=== PATIENT | female | born 1955 | race Caucasian/White ===

== ENCOUNTER → 2016-10-06 | Outpatient (CLI) | payer BC ==
[~2016-10-06] MED LIST: ASTAXANTHIN; ENOX40IN SQ; LUTEIN; MELO15TA3 PO; MULT-506 PO; NXM/40 PO; OMEG10007 PO; TRAM-10 PO; [UNRECOGNIZED DRUG - OTHER]
--- NOTE | 2016-10-06 12:28 | DIAGNOSTIC IMAGING REPORT ---
RIGHT ANKLE MIN 3 VIEWS ROUTINE CLINICAL HISTORY: PAIN Right pain COMPARISON: None. DISCUSSION: The bones and joint spaces appear intact. There is no evidence of fracture, dislocation or bony disease. There is no evidence for soft tissue swelling. IMPRESSION: Negative study. Electronically signed by: Neo Duff M.D. 10/06/2016 12:27 PM Dictated Date/Time: 10/06/2016 12:26 PM
--- NOTE | 2016-10-06 12:29 | DIAGNOSTIC IMAGING REPORT ---
LEFT ANKLE MIN 3 VIEWS ROUTINE CLINICAL HISTORY: PAIN trauma COMPARISON: None. DISCUSSION: The bones and joint spaces appear intact. There is no evidence of fracture, dislocation or bony disease. Small old avulsion tip distal fibula. Margins are well corticated. Ankle mortise is aligned anatomically. IMPRESSION: No acute abnormality Electronically signed by: Neo Duff M.D. 10/06/2016 12:27 PM Dictated Date/Time: 10/06/2016 12:27 PM
--- NOTE | 2016-10-06 12:35 | DIAGNOSTIC IMAGING REPORT ---
L-SPINE MIN 4 VIEWS ROUTINE CLINICAL HISTORY: Pain. COMPARISON: None FINDINGS: A left hip arthroplasty is partially imaged. There is marked multilevel disc space narrowing with osteophytosis and vacuum disc phenomenon at multiple levels. There is moderate to severe facet arthrosis. There is slight retrolisthesis of L4 and L5. Vertebral body heights are maintained. IMPRESSION: 1. No acute lumbar spine fracture or subluxation. 2. Severe multilevel degenerative disc disease and facet arthrosis of the lumbar spine. Electronically signed by: Dat Gee M.D. 10/06/2016 12:34 PM Dictated Date/Time: 10/06/2016 12:33 PM
--- NOTE | 2016-10-06 12:36 | DIAGNOSTIC IMAGING REPORT ---
SI JOINTS 3 OR MORE VIEWS CLINICAL HISTORY: Sacroiliac joint pain. COMPARISON STUDY: Pelvis radiograph February 07, 2011. FINDINGS: A left hip arthroplasty is partially imaged. The sacroiliac joints are intact without evidence for ankylosis. No fracture or suspicious lesion is identified by radiography. There is mild to moderate arthritis of both sacroiliac joints. 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 Electronically signed by: Dat Gee M.D. 10/06/2016 12:35 PM Dictated Date/Time: 10/06/2016 12:34 PM
== END | disposition home or self-care (01) ==
LOC: C.RAD1850 11:36
PROVIDERS: ATTEND Internal Medicine Rheumatology
DX: I73.00 Raynaud's syndrome without gangrene (principal); M51.36 Other intervertebral disc degeneration, lumbar region

== ENCOUNTER → 2016-10-06 | Outpatient (CLI) | payer BC ==
[2016-10-06 14:39] LABS: BASO % 0.6 %; BASO ABS # 0.03 K/uL (0-0.2); COMPLETE YES; HEMATOCRIT 43.4 % (37-47); LYMPH % 27.1 %; LYMPH ABS # 1.36 K/uL (1.2-3.4); MEAN CELL VOLUME 98.6 fL (80-100); MEAN CORPUSCULAR HEMOGLOBIN 33.9 pg (25-34); MEAN CORPUSCULAR HGB CONC 34.3 g/dl (32-36); MEAN PLATELET VOLUME 10.9 fL (7.4-10.4); NEUT % 60.3 %; PLATELET COUNT 290 K/uL (130-400); WHITE BLOOD COUNT 5.02 K/uL (4.8-10.8)
[2016-10-06 14:49] LABS: ALT/SGPT 27 U/L (12-78); BLOOD UREA NITROGEN 17 mg/dl (7-18); BUN/CREATININE RATIO 22.7 (10-20); CALCIUM 9.1 mg/dl (8.5-10.1); CARBON DIOXIDE 30 mmol/L (21-32); CHLORIDE 103 mmol/L (98-107); CREATININE 0.73 mg/dl (0.60-1.20); GLUCOSE 90 mg/dl (70-99); POTASSIUM 4.3 mmol/L (3.5-5.1); SODIUM 141 mmol/L (136-145)
[2016-10-06 14:51] LABS: URINE APPEARANCE TURBID (CLEAR); URINE BILIRUBIN NEG (NEG); URINE COLOR YELLOW; URINE NITRITE NEG (NEG); URINE PH >= 9.0 (4.5-7.5); URINE SPECIFIC GRAVITY 1.014 (1.000-1.030); UROBILINOGEN NEG (NEG)
[2016-10-06 14:52] LABS: ALB/GLOB RATIO 1.3 (0.9-2); ALKALINE PHOSPHATASE 113 U/L (45-117); AST/SGOT 27 U/L (15-37); RHEUMATOID FACTOR < 10.0 U/mL (0-15)
[2016-10-06 14:57] LABS: MANUAL MICROSCOPIC REQUIRED? NO; REVIEW REQ? NO
[2016-10-10 20:16] LABS: ANTI-CENTROMERE AB <1.0 NEG AI (<1.0 NEG); ANTI-SS-A <1.0 NEG AI (<1.0 NEG); ANTI-SS-B <1.0 NEG AI (<1.0 NEG); CYCLIC CITRULLINATED PEPT IGG <16 UNITS (<20); HLA-B27** TC 528X NEGATIVE (NEGATIVE); SM.RNP ANTIBODY <1.0 NEG AI (<1.0 NEG); Sm Antibody <1.0 NEG AI (<1.0 NEG)
[2016-10-11 10:11] LABS: ANA TITER 1:40 TITER (<1:40)
== END | disposition home or self-care (01) ==
LOC: C.LAB1850 12:20
PROVIDERS: ATTEND Internal Medicine Rheumatology
DX: I73.00 Raynaud's syndrome without gangrene (principal)

== ENCOUNTER → 2017-04-24 | Outpatient (CLI) | payer BC ==
--- NOTE | 2017-04-24 15:01 | DIAGNOSTIC IMAGING REPORT ---
FLUOROSCOPICALLY GUIDED INTRA-ARTICULAR RIGHT HIP ANESTHETIC AND STEROID INJECTION CLINICAL HISTORY: Right hip arthritis COMPARISON STUDY: AP pelvis dated 02/07/2011 FLUOROSCOPY TIME: Resected. NUMBER OF FLUOROSCOPIC IMAGES: 1 FINDINGS: A timeout was performed. The risks of the procedure were explained the patient and informed consent was obtained. The skin was anesthetized 1% lidocaine. Under fluoroscopic guidance, a 22-gauge spinal needle was introduced into the joint capsule. Intra-articular location was documented with injection of Optiray 300. 5 cc of 0.5% bupivacaine, and 2 cc of betamethasone were instilled into the joint space. There were no immediate complications IMPRESSION: Successful fluoroscopically guided intra-articular right hip anesthetic and steroid injection. Electronically signed by: Kolton Sanchez M.D. 04/24/2017 3:00 PM Dictated Date/Time: 04/24/2017 2:58 PM
== END | disposition home or self-care (01) ==
LOC: C.RADBC 13:40
PROVIDERS: ATTEND Orthopaedic Surgery
DX: M16.11 Unilateral primary osteoarthritis, right hip (principal)

== ENCOUNTER → 2017-07-12 | Outpatient (CLI) | payer BC ==
--- NOTE | 2017-07-12 19:05 | DIAGNOSTIC IMAGING REPORT ---
CHEST 2 VIEWS ROUTINE CLINICAL HISTORY: PRE OP,LAB THEN RAD THEN CPL pain. Preoperative evaluation. COMPARISON STUDY: 01/12/2011. FINDINGS: Mild emphysematous change. Calcified granuloma right base unchanged in the prior study. No focal infiltrate. Diaphragms smooth but somewhat flattened. IMPRESSION: Emphysematous and chronic change. No acute process. The above report was generated using voice recognition software. It may contain grammatical, syntax or spelling errors. Electronically signed by: Neo Duff M.D. 07/12/2017 7:04 PM Dictated Date/Time: 07/12/2017 7:03 PM
[2017-07-12 19:17] LABS: BASO % 0.4 %; BASO ABS # 0.02 K/uL (0-0.2); COMPLETE YES; EOS % 4.7 %; HEMATOCRIT 42.5 % (37-47); IG% 0.2 %; LYMPH % 29.5 %; LYMPH ABS # 1.64 K/uL (1.2-3.4); MEAN CORPUSCULAR HGB CONC 33.6 g/dl (32-36); MEAN PLATELET VOLUME 10.1 fL (7.4-10.4); MONO % 7.9 %; NEUT % 57.3 %; PLATELET COUNT 261 K/uL (130-400); RED BLOOD COUNT 4.21 M/uL (4.2-5.4); WHITE BLOOD COUNT 5.56 K/uL (4.8-10.8)
[2017-07-12 19:24] LABS: URINE APPEARANCE CLEAR (CLEAR); URINE BILIRUBIN NEG (NEG); URINE COLOR YELLOW; URINE EPITHELIAL CELL AUTO 0-5 /lpf (0-5); URINE NITRITE NEG (NEG); URINE PH 6.5 (4.5-7.5); URINE SPECIFIC GRAVITY 1.014 (1.000-1.030); UROBILINOGEN NEG (NEG)
[2017-07-12 19:25] LABS: MANUAL MICROSCOPIC REQUIRED? NO; REVIEW REQ? NO
[2017-07-12 19:28] LABS: PARTIAL THROMBOPLASTIN RATIO 1.1; PROTHROMBIN TIME (PATIENT) 10.3 SECONDS (9.0-12.0)
[2017-07-12 19:53] LABS: BLOOD UREA NITROGEN 18 mg/dl (7-18); BUN/CREATININE RATIO 26.3 (10-20); CALCIUM 9.2 mg/dl (8.5-10.1); CARBON DIOXIDE 29 mmol/L (21-32); CHLORIDE 104 mmol/L (98-107); CREATININE 0.69 mg/dl (0.60-1.20); GLUCOSE 80 mg/dl (70-99); POTASSIUM 3.6 mmol/L (3.5-5.1); SODIUM 138 mmol/L (136-145)
== END | disposition home or self-care (01) ==
LOC: C.CPL 18:19
PROVIDERS: ATTEND Orthopaedic Surgery
DX: Z01.818 Encounter for other preprocedural examination (principal); M16.11 Unilateral primary osteoarthritis, right hip

== ENCOUNTER 2017-08-08 05:38 | Inpatient (IN) | payer BC ==
--- NOTE | 2017-08-03 08:13 | HISTORY & PHYSICAL EXAMINATION ---
DATE OF ADMISSION: 08/08/2017 CHIEF COMPLAINT: Primary osteoarthritis of the right hip. 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 She had a left total hip arthroplasty done several years ago by Dr. Mooney through a lateral approach and has done very well with that. Unfortunately, she has gone on to develop osteoarthritis of her right hip. Her hip pain comes and goes. It is mostly located in her groin. It hurts going up and down stairs, and getting out of a low car and putting on shoes. After failing extensive conservative treatment she elected to proceed with a right total hip arthroplasty. PAST MEDICAL HISTORY: Denies. PAST SURGICAL HISTORY: Significant for a left total hip arthroplasty, meniscectomy of the right knee, bone spurs removed from heel. ALLERGIES: None. MEDICATIONS: Travatan, Cosopt, Alphagan, and Ambien. FAMILY HISTORY: Noncontributory. SOCIAL HISTORY: The patient is . Rarely drinks. She is moderately active. REVIEW OF SYSTEMS: She complains of right hip and groin pain. All other pertinent review of systems are negative. PHYSICAL EXAMINATION: GENERAL: She is awake, alert and oriented x3. She is in no apparent distress. She is very pleasant. HEENT: Pupils are equal, round and reactive to light. Extraocular motion intact. Oral mucosa is pink and moist. HEART: Regular rate per radial pulse. LUNGS: Jaz symmetrically bilaterally with no audible breath sounds. ABDOMEN: Soft, nontender, nondistended. MUSCULOSKELETAL: On physical examination of her hips, leg lengths are essentially equal. She has about 110 degrees of flexion, 20 degrees of internal rotation, 30 degrees of external rotation. She does have pain with forced internal rotation of her hip. Most of her pain is located within the groin. IMAGING: X-rays of the hip do show advanced osteoarthritis with joint space narrowing and osteophyte formation. IMPRESSION: Primary osteoarthritis of the right hip. PLAN: Will proceed with a right total hip arthroplasty. Postoperatively she will be started on aspirin for DVT prophylaxis and kept in the hospital for 2 midnights for postop medical management.
[2017-08-04 14:08] VITALS: BMI 24.0
[2017-08-08] VITALS (8 sets, daily range): BP systolic 102–144; BP diastolic 64–87; PULSE 53–71; TEMP 36.3–36.8; O2SAT 96–100; Ht 170.2 cm; Wt 70.5 kg
[~2017-08-08] VITALS: Ht 170.2 cm; Wt 70.5 kg
[~2017-08-08 05:38] MED LIST changes: -ASTAXANTHIN; +BRIM0.1S OPB; +DORZ1SOL6 OPB; -ENOX40IN SQ; +IBUP-1459 PO; +LUTE15CA PO; -LUTEIN; -MELO15TA3 PO; -NXM/40 PO; -OMEG10007 PO; -TRAM-10 PO; +TRAV0.00 OPB; +ZOLP10TA PO; +[UNRECOGNIZED DRUG - CODE] VAGRING; -[UNRECOGNIZED DRUG - OTHER]
[2017-08-08] MEDS ORDERED: ACETAMINOPHEN 500 MG TAB PO SCH (06:00)
[2017-08-08] MEDS ORDERED: GABAPENTIN 300 MG CAP PO SCH (06:00)
[2017-08-08] MEDS ORDERED: FAMOTIDINE 20 MG TAB PO SCH (06:00)
[2017-08-08] MEDS ORDERED: LACTATED RINGER'S 1000ML 500 ML IV ONE (06:00)
[2017-08-08] MEDS ORDERED: LACTATED RINGER'S 1000ML IV SCH (06:00)
[2017-08-08] MEDS ORDERED: CEFAZOLIN 2000MG IV PUSH 10 ML IV SCH (06:00)
[2017-08-08] MEDS ORDERED: ROPIVACAINE 5MG/ML 30 ML 150 MG, BUPIVACAINE 0.5% MPF INJ 30 ML, EpINEphrine HCL INJ 0.... INFIL SCH ×8 (06:00)
[2017-08-08] MEDS ORDERED: FENTANYL CITRATE INJ 50 MCG/1 ML 2 ML VIAL ONE (06:25)
[2017-08-08] MEDS ORDERED: MIDAZOLAM HCL 1 MG/ML 2ML VIAL ONE ×2 (06:25→08:44)
[2017-08-08] MEDS ORDERED: BUPIVACAINE 0.5 % 5 MG/1 ML PF 10ML VIAL ONE (06:42)
--- NOTE | 2017-08-08 06:43 | History & Physical Bridge Note ---
H&P Re-Evaluation Bridge Note: I have examined the patient, reviewed the History & Physical and in the interval since the performance of the History & Physical I have noted the following changes of clinical significance: No changes noted
[2017-08-08] MEDS: TRANEXAMIC ACID INJ 1,000 MG in SYRINGE 0 ML IV SCH ×2 (07:56→11:47)
[2017-08-08] MEDS ORDERED: NALOXONE HCL 0.4 MG/1 ML VIAL/CARP IV PRN (08:00)
[2017-08-08] MEDS ORDERED: FENTANYL CITRATE INJ 50 MCG/1 ML 2 ML VIAL IV PRN (08:00)
[2017-08-08] MEDS ORDERED: ATROPINE SULFATE 0.1 MG/ML 5ML SYR IV PRN (08:00)
[2017-08-08] MEDS ORDERED: LABETALOL HCL IV 5 MG/ML 20ML IV PRN (08:00)
[2017-08-08] MEDS ORDERED: PHENYLEPHRINE 100MCG/ML 5ML SYR IV PRN (08:00)
[2017-08-08] MEDS ORDERED: EpHEDrine SULFATE INJ 50 MG/ML AMP IV PRN (08:00)
[2017-08-08] MEDS ORDERED: MEPERIDINE HCL 25 MG/ML CARP IV PRN (08:00)
[2017-08-08] MEDS ORDERED: FLUMAZENIL 0.1 MG/1 ML 10 ML VIAL IV PRN (08:00)
[2017-08-08] MEDS ORDERED: ONDANSETRON INJ 2 MG/ML 2 ML VIAL IV PRN ×2 (08:00→10:30)
[2017-08-08] MEDS ORDERED: HYDROmorphone INJ 2 MG/ML SYR/VIAL IV PRN (08:00)
[2017-08-08] MEDS ORDERED: ORTHO JOINT ANESTHETIC ONE (08:06)
[2017-08-08] MEDS ORDERED: BACITRACIN 50000 UNIT VIAL ONE (08:07)
[2017-08-08] MEDS ORDERED: PROPOFOL IV EMULSION 10 MG/ML 20 ML VIAL IV ONE (08:38)
[2017-08-08] MEDS ORDERED: PHENYLEPHRINE 100MCG/ML 5ML SYR ONE (09:06)
[2017-08-08] MEDS ORDERED: EpHEDrine SULFATE 50MG/5ML SYR ONE (09:06)
--- NOTE | 2017-08-08 10:17 | [facility] Post Operative Brief Note ---
Immediate Operative Summary Operative Date Aug 08, 2017. Pre-Operative Diagnosis Primary osteoarthritis of the right hip Post-Operative Diagnosis Primary osteoarthritis of the right hip Procedure(s) Performed Right Anterior Total Hip Arthroplasty Surgeon Dr. Luis Carlos Sosa Inspector Of Weights And Measures Surgeon(s) Kai Vasquez PA-C Estimated Blood Loss 300ml Findings as above Specimens A. Right femoral head Complication(s) None Disposition Recovery Room / PACU
[2017-08-08] MEDS ORDERED: METOCLOPRAMIDE HCL INJ 5 MG/ML 2 ML VIAL IV PRN (10:30)
[2017-08-08] MEDS ORDERED: SOD PHOSPHATE/SOD BIPHOSPHATE ENEMA 132 ML BTL PR PRN (10:30)
[2017-08-08] MEDS ORDERED: MAGNESIUM HYDROXIDE SUSP 30 ML UDC PO PRN (10:30)
[2017-08-08] MEDS ORDERED: MoRPHine SULFATE 2 MG/ML CARP IV PRN (10:30)
[2017-08-08] MEDS ORDERED: BISACODYL 10 MG SUPP PR PRN (10:30)
[2017-08-08] MEDS ORDERED: ZOLPIDEM TARTRATE 5 MG TAB PO PRN (10:30)
--- NOTE | 2017-08-08 10:33 | DIAGNOSTIC IMAGING REPORT ---
R HIP UNILATERAL 1 VIEW CLINICAL HISTORY: Right hip prosthesis. COMPARISON STUDY: None. FINDINGS: Total fluoroscopy time is 45 seconds. 5 fluoroscopic spot images of the right hip. Images demonstrate placement of a right total hip arthroplasty. The hardware appears intact. No fracture or dislocation identified. IMPRESSION: Fluoroscopy provided for right total hip arthroplasty. Electronically signed by: Manfred Caro M.D. 08/08/2017 10:31 AM Dictated Date/Time: 08/08/2017 10:31 AM
--- NOTE | 2017-08-08 11:09 | DIAGNOSTIC IMAGING REPORT ---
R PELVIS/UNILATERAL HIP 1 VIEW CLINICAL HISTORY: IN PACU - A/P PELVIS and LATERAL HIP INCLUDING ALL OF IMPLANT COMPARISON: None. DISCUSSION: Anatomic alignment status post total right hip arthroplasty. Pre-existing total left hip arthroplasty. Expected soft tissue postoperative change. Surgical drain in position. IMPRESSION: Anatomic alignment status post total right hip arthroplasty. Pre-existing total left hip arthroplasty. The above report was generated using voice recognition software. It may contain grammatical, syntax or spelling errors. Electronically signed by: Neo Duff M.D. 08/08/2017 11:07 AM Dictated Date/Time: 08/08/2017 11:06 AM
--- NOTE | 2017-08-08 12:42 | Anesthesiology Progress Note ---
Anesthesia Post Op Note Date & Time Aug 08, 2017 at 12:42 Vital Signs Pain Intensity: 0 Vital Signs Past 12 Hours Date Time Temp Pulse Resp B/P (MAP) Pulse Ox O2 Delivery O2 Flow Rate FiO2 08/08/17 11:58 59 22 08/08/17 11:58 64 22 100 08/08/17 11:57 126/77 08/08/17 11:53 51 15 08/08/17 11:53 51 15 100 08/08/17 11:52 110/76 08/08/17 11:48 55 18 08/08/17 11:48 54 18 100 08/08/17 11:47 123/81 08/08/17 11:46 36.6 49 20 110/76 (82) 100 Nasal Cannula 2 08/08/17 11:43 52 14 100 08/08/17 11:43 51 14 08/08/17 11:42 115/84 (96) 08/08/17 11:42 115/84 08/08/17 11:41 50 14 08/08/17 11:41 50 14 100 08/08/17 11:38 52 11 100 08/08/17 11:38 52 11 08/08/17 11:37 114/80 (90) 08/08/17 11:37 114/80 08/08/17 11:36 54 23 100 08/08/17 11:36 53 23 08/08/17 11:33 58 15 100 08/08/17 11:33 52 15 08/08/17 11:32 116/73 (81) 08/08/17 11:32 116/73 08/08/17 11:31 56 21 08/08/17 11:31 56 21 100 08/08/17 11:28 51 18 100 08/08/17 11:28 52 18 08/08/17 11:27 128/76 08/08/17 11:27 128/76 (87) 08/08/17 11:26 49 17 100 08/08/17 11:26 49 17 08/08/17 11:25 124/73 (84) 08/08/17 11:25 124/73 08/08/17 11:23 48 13 08/08/17 11:23 47 13 100 08/08/17 11:22 122/81 (91) 08/08/17 11:22 122/81 08/08/17 11:21 51 19 08/08/17 11:21 51 19 100 08/08/17 11:18 50 16 100 08/08/17 11:18 51 16 08/08/17 11:17 119/79 (89) 08/08/17 11:17 119/79 08/08/17 11:16 50 13 100 08/08/17 11:16 50 13 08/08/17 11:13 50 18 100 08/08/17 11:13 50 18 08/08/17 11:12 117/72 (82) 08/08/17 11:12 117/72 08/08/17 11:11 52 20 08/08/17 11:11 52 20 08/08/17 11:09 118/73 (82) 08/08/17 11:09 118/73 08/08/17 11:08 0 19 08/08/17 11:08 51 19 08/08/17 11:06 56 19 100 08/08/17 11:06 47 19 08/08/17 11:05 55 17 113/80 100 Nasal Cannula 2 08/08/17 11:03 51 15 08/08/17 11:03 78 15 100 08/08/17 11:02 110/74 08/08/17 10:58 51 19 08/08/17 10:58 50 19 100 08/08/17 10:57 113/80 08/08/17 10:55 55 17 113/80 100 Nasal Cannula 2 08/08/17 10:53 50 12 08/08/17 10:53 51 12 100 08/08/17 10:52 108/75 08/08/17 10:48 52 13 100 08/08/17 10:48 51 13 08/08/17 10:47 113/73 08/08/17 10:45 54 16 113/73 95 Nasal Cannula 2 08/08/17 10:43 85 18 08/08/17 10:43 55 18 08/08/17 10:42 113/74 08/08/17 10:39 104/72 08/08/17 10:38 90 11 08/08/17 10:38 11 08/08/17 10:38 36.2 89 17 104/72 99 Nasal Cannula 2 08/08/17 06:00 36.3 61 20 144/87 99 Room Air Notes Mental Status: alert / awake / arousable, participated in evaluation Pt Amnestic to Procedure: Yes Nausea / Vomiting: adequately controlled Pain: adequately controlled Airway Patency, RR, SpO2: stable & adequate BP & HR: stable & adequate Hydration State: stable & adequate Neuraxial Anesthesia: was administered, sensory block is resolving Anesthetic Complications: no major complications apparent
[2017-08-08] MEDS: ACETAMINOPHEN IV 1,000 MG in EMPTY BAG 0 ML IV SCH ×2 (14:39→21:36)
[2017-08-08] MEDS: KETOROLAC TROMETHAMINE 30 MG/ML VIAL IV. SCH ×2 (14:39→19:31)
--- NOTE | 2017-08-08 15:57 | Discharge Instructions ---
Discharge Instructions Date of Service Aug 08, 2017. Admission Reason for Admission: Right Hip Degenerative Joint Disease Discharge Discharge Diagnosis / Problem: Right Total Hip Discharge Goals Goal(s): Decrease discomfort, Improve function Activity Recommendations Activity Limitations: as noted below . Instructions / Follow-Up Instructions / Follow-Up Activity and Therapy Recommendations: * If you are using [facility] then Physical Therapy will be provided until they feel you are ready to start Outpatient Physical Therapy. If you are not using a Home Health agency then Outpatient Physical Therapy should start about 3-5 days from your day of surgery. Therapy will last about 3-6 weeks * You were shown a series of exercises in the hospital. Do these exercises three times each day including the exercises you were shown in physical therapy. * Get up and walk several times each day.~ For the first four weeks, try not to stand or walk for more than one hour at a time. If you do stand or walk for more than one hour, you will not hurt anything, but your leg will likely swell.~ ~ * As you feel comfortable, you may change from the walker or crutches to a cane and~then to independent walking. Medications: * Narcotic You will likely be sent home from the hospital with a prescription for the narcotic pain medication that worked best throughout your stay. * Aspirin Most patients will be required to take Aspirin 325mg twice a day for 6 weeks after surgery. This is obtained [id number] and a prescription is not necessary. * Other medications may be prescribed for specific circumstances. If you have any questions, please call the office at . * Resume previous home medications unless otherwise instructed TEDs/Elastic Stockings: The white elastic stockings help limit swelling and prevent blood clots from forming in your legs. The more you wear them, the more they work. Wear them for six weeks. Dressing Care: The VAC dressing should stay on for 10 days. You may remove it on the 10th day. Do not be concerned if it comes off sooner. Showering: You may shower with the VA C dressing. Do not let the shower spray directly hit the VAC dressing, try to keep it out of the way and pat it dry. You may shower regular once the VAC is off and let the soapy water run over the josesito. Things To Watch For: * Drainage from the incision site that occurs more than one week after your surgery. * Increased redness at the incision site. * Fever above 102 degrees Fahrenheit. * Unusual chest pain or shortness of breath. * Call [facility] at with any of the above problems Follow-Up Visit: Follow-up with Dr. Sosa 2 weeks after your day of surgery. An appointment was probably scheduled when you signed-up for surgery in the office. If you have any questions call Office Instructions: More detailed instructions as well as Frequently Asked Questions were provided in a folder by our office when you signed-up for surgery. Please review these instructions when you get home. If you have any further questions or concerns, please feel free to call the office at [phone] Current Hospital Diet Patient's current hospital diet: Regular Diet Discharge Diet Recommended Diet: Regular Diet Procedures Procedures Performed: Right Anterior Total Hip Arthroplasty Pending Studies Studies pending at discharge: no Medical Emergencies . Who to Call and When: Medical Emergencies: If at any time you feel your situation is an emergency, please call [phone] immediately. . Non-Emergent Contact Non-Emergency issues call your: Surgeon Call Non-Emergent contact if: wound has increased drainage, wound has increased redness . "Provider Documentation" section prepared by Luis Carlos Sosa. . VTE Core Measure Inpt VTE Proph given/why not?: Other Anticoagulation (Aspirin 325 twice a day for 6 weeks)
[2017-08-08] MEDS: CEFAZOLIN IV 1,000 MG in SYRINGE 0 ML IV SCH ×2 (16:22→23:31)
[2017-08-08] MEDS: SODIUM CHLORIDE 0.9% 1000ML 1,000 ML IV SCH (16:31)
[2017-08-08] MEDS: OXYCODONE HCL IR 5 MG TAB (IMMEDIATE RELEASE) PO PRN ×3 (16:32→21:33)
--- NOTE | 2017-08-08 16:48 | OPERATIVE REPORT ---
DATE OF OPERATION: 08/08/2017 PREOPERATIVE DIAGNOSIS: Primary osteoarthritis of the right hip. POSTOPERATIVE DIAGNOSIS: Same. PROCEDURE: Right total hip arthroplasty. SURGEON: Dr. Luis Carlos Sosa. UNIVERSAL BRANCH CONSULTANT: Willem Vasquez PA-C, whose assistance was necessary for retraction and closure. ANESTHESIA: Spinal. COMPLICATIONS: None. CONDITION: Stable to PACU. IMPLANTS USED: I used a [employer] Taperloc total hip arthroplasty system with a size 8 standard offset Taperloc stem, a size 54 G7 cup with a single 30 mm screw and E1 neutral poly liner and a size 40 ceramic head with a +3 neck. INDICATIONS: Chente is a pleasant 62-year-old female who presented to my office with chronic right hip and groin pain. X-rays and clinical examination were diagnostic for primary osteoarthritis of the right hip. After failing conservative treatment, she elected to undergo a right total hip arthroplasty. OPERATION AND FINDINGS: On 08/08/2017, she arrived at [facility] for the above procedure. She was seen in the preoperative holding area and the operative extremity was identified and signed. She was given a preoperative antibiotic, a spinal anesthetic and taken back to the operating room, laid on the table in supine position and given basic sedation. The right hip was then brought out through a purist leg positioner. The right hip was then prepped and draped in sterile fashion. Time-out was done and the patient and operative extremity was properly identified. An anterior approach was used. Dissection was taken down through the fascia and the tensor was retracted laterally and the rectus was retracted medially. The circumflex vessels were ligated. The capsule was then incised and tagged for later repair. The femoral neck was then resected and the head was removed. Time was then spent doing a complete circumferential labral release. Sequential reaming of the acetabulum was done up to a size 53 reamer. A size 54 G7 cup was then impacted into place. Appropriate version was checked under fluoroscopy. A size 30 screw was then placed. An E1 neutral poly liner was then snapped into place. The proximal femur was then exposed. Sequential broaching up to a size 8 broach was done. A standard head and neck assembly was applied. The hip was then reduced. I was happy with the size of the stem. I thought the hip was a little bit short. The trials were then removed. The final size 8 Taperloc standard offset stem was then impacted into place. A size 40 ceramic head with a +3 neck was then attached. The hip was then reduced. Final fluoroscopic images showed anatomic alignment of the hip and adequate sizing. The surrounding soft tissues were then injected with 100 mL orthopedic pain control cocktail. The wound was then irrigated with 3 liters of normal saline solution with bacitracin. The capsule was then closed with #1 Vicryl suture and 2 drains were placed. The fascia was then closed with #1 PDS suture. Skin was then closed with 2-0 Vicryl, 3-0 V-Loc suture and josesito. A Prevena VAC dressing was applied. She was then taken to the postanesthesia care unit in stable condition. She tolerated the procedure well. I attest to the content of the Intraoperative Record and any orders documented therein. Any exception s are noted below.
[2017-08-08] MEDS ORDERED: TRAVOPROST Z 0.004% OPH SOLN 2.5 ML BTL OPB SCH (21:00)
[2017-08-08] MEDS ORDERED: DORZOLAMIDE/TIMOLOL 22.3/6.8MG/ML 10 ML BTL OPB SCH (21:00)
[2017-08-08] MEDS: BRIMONIDINE TARTRATE 0.1% OPH SOLN OPB SCH (21:02)
[2017-08-08] MEDS: DORZOLAMIDE/TIMOLOL 22.3/6.8MG/ML 10 ML BTL OPB SCH (21:02)
[2017-08-08] MEDS: TRAVOPROST Z 0.004% OPH SOLN 2.5 ML BTL OPB SCH (21:02)
[2017-08-08] MEDS: ASPIRIN 325 MG ECTAB PO SCH (21:32)
[2017-08-08] MEDS: SENNA 8.6 MG TAB PO SCH (21:33)
[2017-08-08] MEDS: DOCUSATE SODIUM 100 MG CAP PO SCH (21:33)
[2017-08-09] MEDS: KETOROLAC TROMETHAMINE 30 MG/ML VIAL IV. SCH ×4 (01:34→21:28)
[2017-08-09] MEDS: SODIUM CHLORIDE 0.9% 1000ML 1,000 ML IV SCH ×2 (01:35→09:06)
[2017-08-09 03:10] VITALS: BP 98/62; PULSE 71; TEMP 36.8; O2SAT 96
[2017-08-09] MEDS: OXYCODONE HCL IR 5 MG TAB (IMMEDIATE RELEASE) PO PRN ×3 (03:37→21:27)
[2017-08-09 05:38] LABS: HEMATOCRIT 28.6 % (37-47); MEAN CELL VOLUME 99.3 fL (80-100); MEAN CORPUSCULAR HEMOGLOBIN 34.4 pg (25-34); MEAN CORPUSCULAR HGB CONC 34.6 g/dl (32-36); MEAN PLATELET VOLUME 9.7 fL (7.4-10.4); PLATELET COUNT 193 K/uL (130-400); RED BLOOD COUNT 2.88 M/uL (4.2-5.4); WHITE BLOOD COUNT 11.01 K/uL (4.8-10.8)
[2017-08-09 06:06] LABS: BUN/CREATININE RATIO 17.8 (10-20); CALCIUM 7.9 mg/dl (8.5-10.1); CREATININE 0.64 mg/dl (0.60-1.20)
[2017-08-09 06:28] LABS: BASO % 0.1 %; BASO ABS # 0.01 K/uL (0-0.2); COMPLETE YES; EOS % 0.8 %; IG% 0.2 %; LYMPH % 10.4 %; LYMPH ABS # 1.14 K/uL (1.2-3.4); MONO % 7.8 %; NEUT % 80.7 %
[2017-08-09] MEDS: ACETAMINOPHEN IV 1,000 MG in EMPTY BAG 0 ML IV SCH (06:35)
[2017-08-09 07:24] VITALS: BP 143/80; PULSE 91; TEMP 37.2; O2SAT 91
[2017-08-09 07:35] VITALS: BP 96/62; PULSE 62; TEMP 36.6; O2SAT 97
--- NOTE | 2017-08-09 07:58 | PROGRESS NOTE ---
DATE: 08/09/2017 CHIEF COMPLAINT: Status post right total hip arthroplasty, postop day #1. PROGRESS: Chente was seen and examined at bedside today. Overall, she is doing very well. She has a little soreness in her hip, but it was managed with pain medications. She has been up and using the bathroom. She has no complaints. PHYSICAL EXAMINATION: RIGHT HIP: The Prevena VAC dressing is to suction. Her Hemovac is to suction as well. Her leg lengths are equal. She has active dorsiflexion and plantarflexion of her right ankle and good sensation of her quad. LABORATORY DATA: She has an H&H today of 9.9 and 28.6. Her vital signs are all stable and she is voiding on her own. X-rays postoperatively of the right hip show the prosthesis to be in an anatomical alignment without any evidence of fracture, dislocation or loosening. IMPRESSION: Status post right total hip arthroplasty, postop day #1. PLAN: At this point, she is doing well. She will be seen by physical therapy today for ambulation. We will continue aspirin for DVT prophylaxis. Tomorrow morning, the nursing staff can pull the drain and likely discharge her to home.
--- NOTE | 2017-08-09 08:23 | Anesthesiology Progress Note ---
Anesthesia Post Op Note Date & Time Aug 09, 2017 at 08:22 Vital Signs Pain Intensity: 6.0 Vital Signs Past 12 Hours Date Time Temp Pulse Resp B/P (MAP) Pulse Ox O2 Delivery O2 Flow Rate FiO2 08/09/17 08:17 Room Air 08/09/17 07:35 36.6 62 18 96/62 (73) 97 Room Air 08/09/17 03:10 36.8 71 16 98/62 (74) 96 Room Air 08/08/17 23:30 Room Air 08/08/17 23:03 36.7 71 16 102/64 (77) 97 Room Air Notes Mental Status: alert / awake / arousable, participated in evaluation Pt Amnestic to Procedure: Yes Nausea / Vomiting: adequately controlled Pain: adequately controlled Airway Patency, RR, SpO2: stable & adequate BP & HR: stable & adequate Hydration State: stable & adequate Anesthetic Complications: no major complications apparent
[2017-08-09] MEDS: DOCUSATE SODIUM 100 MG CAP PO SCH ×2 (08:39→21:28)
[2017-08-09] MEDS: MULTIVITAMIN TAB PO SCH (08:39)
[2017-08-09] MEDS: ASPIRIN 325 MG ECTAB PO SCH ×2 (08:39→21:28)
[2017-08-09] MEDS: BRIMONIDINE TARTRATE 0.1% OPH SOLN OPB SCH ×2 (08:39→21:26)
[2017-08-09] MEDS: DORZOLAMIDE/TIMOLOL 22.3/6.8MG/ML 10 ML BTL OPB SCH ×2 (08:39→21:26)
[2017-08-09 12:15] VITALS: BP 98/54; PULSE 64; TEMP 37.3; O2SAT 98
[2017-08-09] MEDS: ACETAMINOPHEN 500 MG TAB PO SCH ×2 (13:35→21:29)
[2017-08-09 15:11] VITALS: BP 116/74; PULSE 70; TEMP 36.7; O2SAT 98
[2017-08-09] MEDS: TRAVOPROST Z 0.004% OPH SOLN 2.5 ML BTL OPB SCH (21:26)
[2017-08-09] MEDS: SENNA 8.6 MG TAB PO SCH (21:29)
[2017-08-09 23:02] VITALS: BP 105/66; PULSE 61; TEMP 36.9; O2SAT 95
[2017-08-10] MEDS: KETOROLAC TROMETHAMINE 30 MG/ML VIAL IV. SCH ×2 (01:50→07:28)
[2017-08-10] MEDS: ACETAMINOPHEN 500 MG TAB PO SCH (05:59)
[2017-08-10] MEDS ORDERED: RXC5 PO (06:02)
[2017-08-10] MEDS ORDERED: ASPEC325 PO (06:02)
[2017-08-10 07:04] VITALS: BP 119/74; PULSE 61; TEMP 36.6; O2SAT 97
--- NOTE | 2017-08-10 07:08 | PROGRESS NOTE ---
DATE: 08/10/2017 CHIEF COMPLAINT: Status post right total hip arthroplasty postop day #2. PROGRESS: Chente was seen and examined at bedside today. Overall, she is doing very well. She was able to ambulate around the nurses' station yesterday with physical therapy. Her pain is controlled. She has no complaints. PHYSICAL EXAMINATION: RIGHT HIP: The Prevena VAC is to suction and the drain has been pulled. Her leg lengths are equal. She is neurovascularly intact. IMPRESSION: Status post right total hip arthroplasty postop day #2. PLAN: At this point, she is doing well. She is on aspirin for DVT prophylaxis. The oxycodone is helping control her pain. She will be seen by physical therapy again this morning and subsequently discharged to home.
--- NOTE | 2017-08-10 07:22 | DISCHARGE SUMMARY ---
DISCHARGE DIAGNOSIS: Primary osteoarthritis of the right hip. PROCEDURE: Right total hip arthroplasty on 08/08/[address] Luis Carlos Sosa. DISCHARGE INSTRUCTIONS: 1. Aspirin 325 mg twice a day for 6 weeks. 2. CASTILLO hose stockings for 6 weeks. 3. Oxycodone 5-10 mg every 4 hours as needed for pain. 4. Alphagan drops twice a day. 5. Cosopt drops twice a day. 6. Travatan Z drops at night. 7. Ambien 10 mg at night for sleep. 8. Continue all vitamins and supplementations. 9. Follow up with Dr. Sosa in 2 weeks. 10. Call the office of Dr. Sosa with any questions or concerns. 11. Leave the Prevena VAC dressing on for 10 days. HOSPITAL COURSE: Chente is a pleasant 62-year-old female who presented to my office with complaints of chronic right hip and groin pain. X-rays and clinical examination were diagnostic for primary osteoarthritis of the right hip. After failing conservative treatment she elected to undergo a right total hip arthroplasty. On 08/08/2017 she arrived at [facility] and underwent a right hip replacement without complications. She had a spinal anesthetic. Postoperatively, she was started on aspirin and discharged to general orthopedic floor. Her hospital course was uneventful. On postop day #1, her H&H was stable at 9.9 and 28.6. She was up and ambulating well with physical therapy. On postop day #2 the drain was pulled and her pain was controlled. She continued to work well with physical therapy and was subsequently discharged to home with the above instructions.
[2017-08-10] MEDS: BRIMONIDINE TARTRATE 0.1% OPH SOLN OPB SCH (07:29)
[2017-08-10] MEDS: DORZOLAMIDE/TIMOLOL 22.3/6.8MG/ML 10 ML BTL OPB SCH (07:30)
[2017-08-10] MEDS: MULTIVITAMIN TAB PO SCH (07:31)
[2017-08-10] MEDS: DOCUSATE SODIUM 100 MG CAP PO SCH (07:32)
[2017-08-10] MEDS: ASPIRIN 325 MG ECTAB PO SCH (08:43)
[2017-08-10 10:50] VITALS: BP 119/74; PULSE 61; TEMP 36.6; O2SAT 97
== END 2017-08-10 11:30 | disposition home health service (06) | DRG 470 ==
LOC: C.ACU 05:38 → C.3E 10:21 → ENRESERV 11:12
PROVIDERS: ADMIT Orthopaedic Surgery; ATTEND Orthopaedic Surgery
PROC: 0SR904Z Replacement of Right Hip Joint with Ceramic on Polyethylene Synthetic Substitute, Open Approach (ICD-10-PCS; principal; 2017-08-08 08:00)
DX: M16.11 Unilateral primary osteoarthritis, right hip (principal); Z96.642 Presence of left artificial hip joint